=== PATIENT | male | born 1955 | race Caucasian/White ===

== ENCOUNTER 2017-08-16 07:14 | Day surgery (SDC) | payer OTHER ==
[~2017-08-16] VITALS: Ht 162.6 cm; Wt 84.0 kg
[~2017-08-16 07:14] MED LIST: DIAZ-90 PO; HYDR12.58 PO; LISI20TA11 PO
[2017-08-16 08:21] VITALS: Ht 162.6 cm; Wt 84.0 kg
[2017-08-16] MEDS ORDERED: OMEPRAZOLE (08:36)
[2017-08-16] MEDS ORDERED: LIDOCAINE 100 MG SYRINGE ONE (08:52)
[2017-08-16] MEDS ORDERED: PROPOFOL 60 ML ONE (08:52)
[2017-08-16] MEDS ORDERED: FENTAnyl 50 MCG/ML VIAL ONE (08:53)
[2017-08-16] MEDS ORDERED: ONDANSETRON 4 MG INJ ONE (08:53)
[2017-08-16 09:18] VITALS: BP 111/78; PULSE 78; RESP 18
--- NOTE | 2017-08-16 09:34 | OPPN ---
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
--- NOTE | 2017-08-16 11:48 | GILP ---
DATE OF PROCEDURE: NAME OF PROCEDURES: 1. Esophagogastroduodenoscopy and biopsy. 2. Colonoscopy and biopsy. SURGEON: Oleg Gomez MD PREOPERATIVE DIAGNOSIS: 1. Anemia. 2. Gastroesophageal reflux disease. 3. History of colon polyps. POSTOPERATIVE DIAGNOSES: 1. Hiatal hernia. 2. Gastroesophageal reflux disease. 3. Gastritis with erosions. 4. Colonoscopy all the way to the cecum. 5. Right colon polyp was removed using the biopsy forceps. 6. Internal hemorrhoids. INDICATION FOR THE PROCEDURE: Mr. Guerrero Lindsay is a 62-year-old male patient who had anemia. He als o had chronic heartburn not completely responding to therapy. He had history of colon polyps. The patient was scheduled for endoscopy and colonoscopy for further evaluation. The procedures and possible complications were well explained to the patient. The patient understoo d and consented to the procedure. DESCRIPTION OF PROCEDURE: Under the influence of anesthesia, the gastroscope was carefully introduc ed into the esophagus and under direct vision, it was advanced to the stomach and through the pyloru s into the duodenal bulb and descending duodenum. FINDINGS: ESOPHAGUS: The patient had hiatal hernia and gastroesophageal reflux disease. STOMACH: He had gastritis with erosions. Gastric mucosal biopsies were taken for H. pylori test. DUODENUM: Normal. The colonoscope was carefully introduced in the rectum and under direct vision, it was advanced all the way to the cecum. FINDINGS: The patient had a right colon polyp and it was removed using the biopsy forceps. He had internal hemorrhoids. He tolerated the procedures very well and there was no complication from the procedures. At the end of the procedures, he was awake with stable vital signs and he was discharged home to the care of h is family. IMPRESSION: Please see postoperative diagnosis. PLAN: 1. Continue omeprazole. 2. Await histopathology reports. 3. Next screening colonoscopy in 5 years. Dictated By: OLEG MALAVE/HARRIS Conf#: [id number] DID#: [id number]
== END 2017-08-16 16:51 | disposition home or self-care (01) ==
LOC: GIL 07:14
PROVIDERS: ATTEND Internal Medicine Gastroenterology
DX: K63.5 Polyp of colon (principal); K21.9 Gastro-esophageal reflux disease without esophagitis; K29.60 Other gastritis without bleeding; K44.9 Diaphragmatic hernia without obstruction or gangrene; K64.8 Other hemorrhoids; I10 Essential (primary) hypertension; J45.909 Unspecified asthma, uncomplicated
CPT/HCPCS: 43239; 45380; 87081; 88305; J2001; J2405; J3010; Z7610

== ENCOUNTER 2017-10-18 01:47 | Observation (INO) | END 2017-10-19 12:15 | disposition home or self-care (01) ==

== ENCOUNTER 2017-11-01 14:52 | Inpatient (IN) | END 2017-11-17 06:25 | disposition EXP | DRG 871 ==